=== PATIENT | male | born 1960 | race Caucasian/White ===

== ENCOUNTER 2021-05-12 07:14 | Emergency (ER) | payer OTHER ==
[2021-05-12] MEDS ORDERED: VASOTEC 2.2.5 MG/TAB (07:23)
[2021-05-12] MEDS ORDERED: TOPROL XL 50MG50 MG PO (07:23)
[2021-05-12] MEDS ORDERED: TRAMADOL 50 MG TAB PO (07:23)
[2021-05-12] MEDS ORDERED: CLOPIDOGREL PO (07:23)
[2021-05-12 08:20] LABS: BASO # 0.05 K/mm3 (0.02-0.10); EOS # 0.27 K/mm3 (0.04-0.40); EOS % 3.2 % (0.0-4.0); HEMATOCRIT 44.7 % (42.0-52.0); HEMOGLOBIN 15.8 g/dL (13.5-18.0); LYMPH# 1.72 K/mm3 (1.50-4.00); MEAN CELL VOLUME 102 fl (78-100); MEAN CORPUSCULAR HEMOGLOBIN 36 pg (27-31); MEAN CORPUSCULAR HGB CONC 35 g/dL (33-37); MEAN PLATELET VOLUME 9.1 fl (7.4-10.4); MONO # 0.45 K/mm3 (0.20-0.80); NEU # 5.85 K/mm3 (1.40-6.50); PLATELET COUNT 224 K/mm3 (130-400); RED BLOOD COUNT 4.39 M/mm3 (4.20-5.60); RED CELL DISTRIBUTION WIDTH 12.3 % (11.5-14.5); WHITE BLOOD COUNT 8.4 K/mm3 (4.8-10.8)
[2021-05-12 08:45] LABS: URINE APPEARANCE CLEAR; URINE COLOR YELLOW
[2021-05-12 08:46] LABS: URINE BILIRUBIN NEGATIVE (NEGATIVE); URINE BLOOD TRACE (NEGATIVE); URINE GLUCOSE NEGATIVE (NEGATIVE); URINE KETONE NEGATIVE (NEGATIVE); URINE LEUKOCYTE ESTERASE NEGATIVE (NEGATIVE); URINE NITRATE NEGATIVE (NEGATIVE); URINE PROTEIN(semi-quant) NEGATIVE (NEGATIVE); URINE UROBILINOGEN NORMAL (NORMAL); URINE WBC 0-1 /hpf (0-3)
[2021-05-12 08:55] LABS: CALCIUM 9.4 mg/dL (8.3-10.5)
[2021-05-12 11:27] VITALS: BP 159/90
== END 2021-05-12 10:45 | disposition home or self-care (01) ==
LOC: ED 07:14
PROVIDERS: Family Medicine
DX: S22.41XA Multiple fractures of ribs, right side, initial encounter for closed fracture (principal); F17.200 Nicotine dependence, unspecified, uncomplicated; Z90.49 Acquired absence of other specified parts of digestive tract
CPT/HCPCS: J1885

== ENCOUNTER 2023-10-28 21:38 | Emergency (ER) | payer MEDICARE ==
[~2023-10-28] VITALS: Ht 180.3 cm; Wt 90.0 kg
[~2023-10-28 21:38] MED LIST: CLOPIDOGREL PO; TOPROL XL 50MG50 MG PO; TRAMADOL 50 MG TAB PO; VASOTEC 2.2.5 MG/TAB
[2023-10-28 22:32] LABS: BASO # 0.03 K/mm3 (0.02-0.10); EOS # 0.27 K/mm3 (0.04-0.40); EOS % 3.1 % (0.0-4.0); HEMOGLOBIN 13.7 g/dL (13.5-18.0); MEAN CELL VOLUME 100 fl (78-100); MEAN CORPUSCULAR HEMOGLOBIN 35 pg (27-31); MEAN CORPUSCULAR HGB CONC 35 g/dL (33-37); MEAN PLATELET VOLUME 8.9 fl (7.4-10.4); MONO # 0.48 K/mm3 (0.20-0.80); NEU # 6.59 K/mm3 (1.40-6.50); PLATELET COUNT 156 K/mm3 (130-400); RED CELL DISTRIBUTION WIDTH 11.8 % (11.5-14.5); WHITE BLOOD COUNT 8.7 K/mm3 (4.8-10.8)
[2023-10-28 22:45] LABS: ALBUMIN 4.2 g/dL (3.4-4.8); SODIUM 140 mmol/L (136-145)
[2023-10-28 22:46] LABS: CALCIUM 9.4 mg/dL (8.3-10.5)
[2023-10-28 22:47] LABS: GLUCOSE 89 mg/dL (75-110); TOTAL PROTEIN 6.9 g/dL (6.2-8.1)
[2023-10-28 22:48] LABS: CARBON DIOXIDE 22 mmol/L (23-31)
[2023-10-28 22:52] LABS: AST-SGOT 68 U/L (5-34)
[2023-10-28 22:54] LABS: ALT/SGPT 62 U/L (0-55)
[2023-10-28 23:00] LABS: TROPONIN-I < 0.030 ng/mL (0.00-0.033)
[2023-10-28 23:03] LABS: ALCOHOL IN-HOUSE < 10 mg/dL (<10)
[2023-10-28 23:15] LABS: TOTAL BILIRUBIN 0.7 mg/dL (0.2-1.2)
[2023-10-28 23:55] LABS: URINE APPEARANCE CLEAR (CLEAR); URINE BILIRUBIN 1+ (NEGATIVE); URINE BLOOD TRACE-INTACT (NEGATIVE); URINE COLOR YELLOW (YELLOW); URINE GLUCOSE NEGATIVE (NEGATIVE); URINE KETONE 1+ (NEGATIVE); URINE LEUKOCYTE ESTERASE NEGATIVE (NEGATIVE); URINE NITRATE NEGATIVE (NEGATIVE); URINE PROTEIN(semi-quant) TRACE (NEGATIVE); URINE WBC 0-1 /hpf (0-3)
[2023-10-29 01:49] VITALS: BP 125/70
== END 2023-10-29 01:49 | disposition home or self-care (01) ==
LOC: ED 21:38
PROVIDERS: Physician Assistant
DX: J02.9 Acute pharyngitis, unspecified (principal); R53.1 Weakness; F17.290 Nicotine dependence, other tobacco product, uncomplicated